=== PATIENT | female | born 1960 | race Caucasian/White ===

== ENCOUNTER 2023-10-06 13:25 | Outpatient (RCR) | payer BC, SELFPAY | END 2023-10-15 08:51 | disposition home or self-care (01) | LOC: ROT 13:25 | PROVIDERS: ATTENDING PHYSICIAN Internal Medicine Rheumatology; PRIMARYCARE PHYSICIAN Family Medicine | DX: M18.0 Bilateral primary osteoarthritis of first carpometacarpal joints (principal) | CPT/HCPCS: 73502; 97110; 97535; 97760 ==

== ENCOUNTER → 2023-12-16 13:01 | Outpatient (REF) | payer BC, SELFPAY ==
[2023-12-16 14:30] LABS: ALT (SGPT) 64 U/L (0-35); AST (SGOT) 52 U/L (14-36); Albumin 4.4 g/dl (3.5-5.0); Alkaline Phosphatase 53 U/L (38-126); Blood Urea Nitrogen 18 mg/dl (7-17); Calcium 9.5 mg/dl (8.4-10.2); Carbon Dioxide 31 mmol/L (22-30); Chloride 97 mmol/L (98-107); Glucose 115 mg/dl (70-99); Potassium 4.3 mmol/L (3.5-5.1); Sodium 131 mmol/L (135-145); Total Bilirubin 0.5 mg/dl (0.2-1.3); Total Protein 7.2 g/dl (6.3-8.2); eGFR > 60.00
== END ==
LOC: REG 13:01
PROVIDERS: ATTENDING PHYSICIAN Family Medicine
DX: E87.1 Hypo-osmolality and hyponatremia (principal); R74.8 Abnormal levels of other serum enzymes
CPT/HCPCS: 36415; 80053

== ENCOUNTER → 2023-12-31 16:21 | Outpatient (REF) | payer BC, SELFPAY | LOC: RAD 16:21 | PROVIDERS: ATTENDING PHYSICIAN Physician Assistant | DX: R07.9 Chest pain, unspecified (principal) | CPT/HCPCS: 71046 ==

== ENCOUNTER → 2024-01-05 09:50 | Outpatient (REF) | payer BC, SELFPAY ==
[2024-01-05 12:29] LABS: ALT (SGPT) 52 U/L (0-35); AST (SGOT) 40 U/L (14-36); Albumin 4.6 g/dl (3.5-5.0); Alkaline Phosphatase 52 U/L (38-126); Iron 195 ug/dl (37-170); Total Bilirubin 0.6 mg/dl (0.2-1.3); Total Protein 7.2 g/dl (6.3-8.2)
[2024-01-05 12:40] LABS: Percent Saturation 54 % (20-50); Total Iron Binding Capacity 355 ug/dl (265-497)
[2024-01-05 13:19] LABS: Ferritin 20.6 ng/ml (11.1-264.0)
[2024-01-05 14:09] LABS: tTG IgA Antibody 4.9 EU/ml (0-19); tTG IgG Antibody 12.9 EU/ml (0-19)
[2024-01-06 05:54] LABS: IgA 300 mg/dl (70-400)
[2024-01-06 19:05] LABS: Hepatitis B Surface Antigen Negative (Negative)
[2024-01-06 19:23] LABS: Hepatitis B Core Ab, Total Negative (Negative); Hepatitis B Surface Antibody Negative; Hepatitis C Antibody Negative (Negative)
[2024-01-06 20:39] LABS: Hepatitis A Antibody, Total Negative (Negative)
[2024-01-07 07:51] LABS: ANA, IgG Reflex to HEp-2 Detected (None Detected)
[2024-01-07 08:20] LABS: F-Actin Antibody IgG 4 Units (0-19); Mitochondrial M2 Ab, IgG 2.6 Units (0.0-24.9)
[2024-01-07 09:45] LABS: Alpha-1-Antitrypsin 131 mg/dL (90-200); Ceruloplasmin 31 mg/dL (16-45)
[2024-01-07 21:34] LABS: Endomysial IgA Antibody Titer <1:10 (<1:10)
[2024-01-07 22:06] LABS: LKM-1 Ab (IgG) 1.7 U (0.0-24.9)
[2024-01-10 07:21] LABS: ANA, HEp-2, IgG <1:80 (<1:80)
== END ==
LOC: REG 09:50
PROVIDERS: ATTENDING PHYSICIAN Physician Assistant; FAMILY PHYSICIAN Family Medicine
DX: R79.89 Other specified abnormal findings of blood chemistry (principal)
CPT/HCPCS: 36415; 80076; 82103; 82390; 82728; 82784; 83516; 83540; 83550; 86015; 86038; 86039; 86231; 86376; 86381; 86704; 86706; 86708; 86803; 87340

== ENCOUNTER → 2024-01-28 08:16 | Outpatient (REF) | payer BC, SELFPAY | LOC: RAD 08:16 | PROVIDERS: ATTENDING PHYSICIAN Physician Assistant; FAMILY PHYSICIAN Family Medicine | DX: R79.89 Other specified abnormal findings of blood chemistry (principal); K59.00 Constipation, unspecified | CPT/HCPCS: 74019; 76700 ==

== ENCOUNTER → 2024-01-31 14:51 | Outpatient (REF) | payer BC, SELFPAY | LOC: WDC 14:51 | PROVIDERS: ATTENDING PHYSICIAN Obstetrics & Gynecology; FAMILY PHYSICIAN Family Medicine | DX: R92.2 Inconclusive mammogram (principal) | CPT/HCPCS: 76641 ==

== ENCOUNTER → 2024-02-11 14:17 | Outpatient (REF) | payer BC, SELFPAY ==
[2024-02-13 19:16] LABS: ANA, IgG Reflex to HEp-2 Detected (None Detected)
[2024-02-14 12:57] LABS: ANA, HEp-2, IgG <1:80 (<1:80)
[2024-02-18 17:43] LABS: Hemochromatosis Specimen Whole Blood
== END ==
LOC: REG 14:17
PROVIDERS: ATTENDING PHYSICIAN Physician Assistant; FAMILY PHYSICIAN Family Medicine
DX: R79.89 Other specified abnormal findings of blood chemistry (principal)
CPT/HCPCS: 36415; 81256; 86038; 86039

== ENCOUNTER → 2024-02-17 11:21 | Outpatient (REF) | payer BC, SELFPAY | LOC: RAD 11:21 | PROVIDERS: ATTENDING PHYSICIAN Internal Medicine Rheumatology; FAMILY PHYSICIAN Family Medicine | DX: M81.0 Age-related osteoporosis without current pathological fracture (principal); M75.100 Unspecified rotator cuff tear or rupture of unspecified shoulder, not specified as traumatic | CPT/HCPCS: 73030; 77080 ==

== ENCOUNTER → 2024-03-01 09:20 | Outpatient (REF) | payer BC, SELFPAY ==
[2024-03-01 10:47] LABS: % Basophils 0.9 % (0-2); % Eosinophils 5.1 % (0-6); % Lymphocytes 49.8 % (20.5-51.1); % Monocytes 10.4 % (1.7-9.3); % Neutrophils 33.8 % (42.2-75.2); Absolute Basophils 0.1 10^3/uL (0-0.2); Absolute Eosinophils 0.3 10^3/uL (0-0.7); Absolute Lymphocytes 2.8 10^3/uL (1.2-3.4); Absolute Monocytes 0.6 10^3/uL (0.1-0.6); Absolute Neutrophils 1.9 10^3/uL (1.4-6.5); Hematocrit 38.3 % (37.0-47.0); Mean Corp Hgb Conc. 33.9 g/dL (33.0-37.0); Mean Corpuscular Hgb 32.1 pg (27.0-31.0); Mean Corpuscular Volume 94.6 fL (81.0-99.0); Mean Platelet Volume 9.4 fL (7.4-10.4); Nucleated Red Blood Cells % 0 %; Platelet Count 249 10^3/uL (130-400); Red Blood Cell Count 4.05 10^6/uL (4.20-5.40); Red Cell Dist. Width 11.9 % (11.5-14.5); White Blood Cell Count 5.7 10^3/uL (4.8-10.8)
[2024-03-01 11:08] LABS: Erythrocyte Sed Rate 10 mm/hour (0-20)
[2024-03-01 11:22] LABS: ALT (SGPT) 44 U/L (0-35); AST (SGOT) 43 U/L (14-36); Albumin 4.1 g/dl (3.5-5.0); Alkaline Phosphatase 51 U/L (38-126); Blood Urea Nitrogen 16 mg/dl (7-17); Calcium 9.3 mg/dl (8.4-10.2); Carbon Dioxide 27 mmol/L (22-30); Chloride 99 mmol/L (98-107); Creatine Phosphokinase 148 U/L (30-135); Glucose 92 mg/dl (70-99); Potassium 4.3 mmol/L (3.5-5.1); Sodium 132 mmol/L (135-145); Total Bilirubin 0.4 mg/dl (0.2-1.3); Total Cholesterol 205 mg/dl (50-199); Total Protein 6.7 g/dl (6.3-8.2); Triglyceride 52 mg/dl (10-149); Very Low Density Lipoprotein 10 mg/dl (0-30); eGFR > 60.00
[2024-03-01 11:28] LABS: C-Reactive Protein < 5.00 mg/L (0.0-10.00)
[2024-03-01 11:33] LABS: HDL Cholesterol 116 mg/dl; LDL Cholesterol, Calculated 79 mg/dl
[2024-03-01 11:53] LABS: TSH 2.19 uIU/ml (0.47-4.68)
[2024-03-01 15:27] LABS: tTG IgA Antibody 3.4 EU/ml (0-19)
[2024-03-02 05:53] LABS: IgA 278 mg/dl (70-400)
[2024-03-03 19:16] LABS: Endomysial IgA Antibody Titer <1:10 (<1:10)
== END ==
LOC: REG 09:20
PROVIDERS: ATTENDING PHYSICIAN Internal Medicine Rheumatology; FAMILY PHYSICIAN Family Medicine
DX: E05.90 Thyrotoxicosis, unspecified without thyrotoxic crisis or storm (principal); E87.1 Hypo-osmolality and hyponatremia; M32.9 Systemic lupus erythematosus, unspecified; Z51.81 Encounter for therapeutic drug level monitoring; E78.2 Mixed hyperlipidemia; R74.8 Abnormal levels of other serum enzymes; D72.819 Decreased white blood cell count, unspecified; M25.50 Pain in unspecified joint
CPT/HCPCS: 36415; 80053; 80061; 82533; 82550; 82784; 83516; 84443; 85025; 85652; 86038; 86140; 86231

== ENCOUNTER → 2024-08-19 10:07 | Outpatient (REF) | payer BC, SELFPAY ==
[2024-08-19 11:13] LABS: ALT (SGPT) 29 U/L (0-35); AST (SGOT) 37 U/L (14-36); Albumin 4.5 g/dl (3.5-5.0); Alkaline Phosphatase 47 U/L (38-126); Blood Urea Nitrogen 16 mg/dl (7-17); Calcium 9.7 mg/dl (8.4-10.2); Carbon Dioxide 30 mmol/L (22-30); Chloride 99 mmol/L (98-107); Glucose 104 mg/dl (70-99); Potassium 4.5 mmol/L (3.5-5.1); Sodium 138 mmol/L (135-145); Total Bilirubin 0.4 mg/dl (0.2-1.3); eGFR > 60.00
== END ==
LOC: REG 10:07
PROVIDERS: ATTENDING PHYSICIAN Family Medicine; OTHER PHYSICIAN Internal Medicine Rheumatology; REFERRING PHYSICIAN Internal Medicine Gastroenterology
DX: R74.8 Abnormal levels of other serum enzymes (principal)
CPT/HCPCS: 36415; 80053

== ENCOUNTER → 2024-08-31 14:00 | Outpatient (REF) | payer BC, SELFPAY | LOC: WDC 14:00 | PROVIDERS: ATTENDING PHYSICIAN Obstetrics & Gynecology; FAMILY PHYSICIAN Family Medicine | DX: Z12.31 Encounter for screening mammogram for malignant neoplasm of breast (principal) | CPT/HCPCS: 77063; 77067 ==

== ENCOUNTER → 2024-12-22 10:09 | Outpatient (REF) | payer BC, SELFPAY ==
[2024-12-22 10:52] LABS: Hematocrit 40.4 % (37.0-47.0); Hemoglobin 13.2 g/dL (12.0-16.0); Mean Corp Hgb Conc. 32.7 g/dL (33.0-37.0); Mean Corpuscular Hgb 31.6 pg (27.0-31.0); Mean Corpuscular Volume 96.7 fL (81.0-99.0); Platelet Count 210 10^3/uL (130-400); Red Blood Cell Count 4.18 10^6/uL (4.20-5.40); Red Cell Dist. Width 12.1 % (11.5-14.5); White Blood Cell Count 5.5 10^3/uL (4.8-10.8)
[2024-12-22 11:16] LABS: % Basophils 0.5 % (0-2); % Eosinophils 4.9 % (0-6); % Immature Granulocytes 0.2 % (0-0.5); % Lymphocytes 52.3 % (20.5-51.1); % Monocytes 10.7 % (1.7-9.3); % Neutrophils 31.4 % (42.2-75.2); Absolute Eosinophils 0.3 10^3/uL (0-0.7); Absolute Lymphocytes 2.9 10^3/uL (1.2-3.4); Absolute Monocytes 0.6 10^3/uL (0.1-0.6); Absolute Neutrophils 1.7 10^3/uL (1.4-6.5); Nucleated Red Blood Cells % 0 %
[2024-12-22 12:08] LABS: ALT (SGPT) 37 U/L (0-35); AST (SGOT) 41 U/L (14-36); Albumin 4.8 g/dl (3.5-5.0); Alkaline Phosphatase 63 U/L (38-126); Blood Urea Nitrogen 22 mg/dl (7-17); Calcium 9.9 mg/dl (8.4-10.2); Carbon Dioxide 28 mmol/L (22-30); Chloride 99 mmol/L (98-107); Glucose 100 mg/dl (70-99); Potassium 4.4 mmol/L (3.5-5.1); Sodium 134 mmol/L (135-145); Total Bilirubin 0.9 mg/dl (0.2-1.3); Total Protein 7.2 g/dl (6.3-8.2); eGFR > 60.00
== END ==
LOC: REG 10:09
PROVIDERS: ATTENDING PHYSICIAN Internal Medicine Rheumatology; FAMILY PHYSICIAN Family Medicine
DX: M81.0 Age-related osteoporosis without current pathological fracture (principal); Z51.81 Encounter for therapeutic drug level monitoring
CPT/HCPCS: 36415; 80053; 85025

== ENCOUNTER → 2025-01-22 14:00 | Outpatient (REF) | payer BC, SELFPAY | LOC: RAD 14:00 | PROVIDERS: ATTENDING PHYSICIAN Nurse Practitioner | DX: J06.9 Acute upper respiratory infection, unspecified (principal) | CPT/HCPCS: 71046 ==

== ENCOUNTER 2025-02-04 09:01 | Emergency (ER) | payer BC, SELFPAY ==
--- NOTE | 2025-02-04 10:57 | ED.GENMED ---
History of Present Illness
General
Chief Complaint: Breathing Problem
Source: patient and family
Exam Limitations: none
Time Seen by Provider: 02/04/25 09:58
Nursing documentation reviewed up to this point in time: agreed with
History of Present Illness
History of Present Illness:
64-year-old female with distant history of asthma COVID few months ago, slowly recovering using nebs, course of p.o. steroids course of Doxy inhaled steroids cough is worse at night, no fever for a week or 2, developed redness and swelling of the
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
Past History
Past History
ED Past Medical History: Other (Collagenous colitis) and Other (Migraines)
ED Past Surgical History: Gynecological and Other (Abdominal plasty)
Social History
Tobacco: Non-smoker
Alcohol: None
Drug: None
Personal:
Living: with family
Phy Exam
Physical Exam
Physical Exam:
Physical Exam
General: 64 female, coughing
Neck: supple.
Heart: s1/s2 regular rate and rhythm, no murmur. equal radial pulses.
Lungs: Fair air movement faint wheeze
Abdomen: Not tender
Neuro: alert and oriented. no focal neurological deficits
Skin: no rash
Psychiatric: well kept. interactive and cooperative
Extremities: Erythema mild swelling of the left olecranon bursa minimal warmth no fluctuance
Scores
Heart Failure Risk
Heart Failure Risk Score: Not Applicable
Course
Orders/Labs/Results
Orders:
Orders
02/04/25 10:49
Electrocardiogram (*1) Stat
Reason for Study: Other
Other Reason for Exam: chest pain
CT Chest PE Study Urgent
Comment:
Reason For Exam: sob
Cardiac Monitoring- Treatment ONCE
EKG- Treatment ONCE
02/04/25 10:50
Ipratropium/Albuterol Sulfate [Duoneb] 3 ml INH R NOW STA
Elbow, 3 view, Left [CR Elbow - Left Min 3 Views ] Urgent
Comment:
Reason For Exam: swelling
02/04/25 10:51
Acetaminophen 1000MG/100Ml [Ofirmev] 1,000 mg in 100 ml IV ONCE
Acetaminophen IV Indication:: ED Narcotic Naive Pt-ONCE
02/04/25 11:00
Complete Blood Count/With Diff Urgent
Comprehensive Metabolic Panel Urgent
ESR [Erythrocyte Sed Rate] Urgent
Magnesium Urgent
NT-proBNP Urgent
TSH Urgent
Troponin I Urgent
02/04/25 11:33
COVID-19 Antigen Urgent
Source: Nasal Swab
Influenza A+B Rapid Molecular Urgent
KAREN Source: Nasal Swab
Specimen Description:
Respiratory Syncytial Virus Urgent
KAREN Source: Nasal Swab
Specimen Description:
Date Specimen was Collected: 02/04/25
Time Specimen was Collected: 11:18
02/04/25 13:46
Doxycycline Hyclate [Vibramycin] 100 mg 0.9% Sodium Chloride 250 ml [Nss] 250 ml IV NOW
Ipratropium/Albuterol Sulfate [Duoneb] 6 ml INH R NOW STA
02/04/25 14:07
Doxycycline [Vibramycin] 100 mg PO NOW STA
Abnormal Lab Results
02/04/25
11:00
WBC 13.7 H 10^3/uL
(4.8-10.8)
MCH 32.6 H pg
(27.0-31.0)
Absolute Neuts (auto) 9.4 H 10^3/uL
(1.4-6.5)
Absolute Monos (auto) 1.1 H 10^3/uL
(0.1-0.6)
Sodium 134 L mmol/L
(135-145)
BUN 23 H mg/dl
(7-17)
Glucose 115 H mg/dl
(70-99)
02/04/25 11:00
02/04/25 11:00
Vital Signs
Initial and Last Documented VS:
Initial Vital Signs
Temp Pulse Resp Pulse Ox
98.3 F 90 16 100
02/04/25 09:05 02/04/25 09:05 02/04/25 09:05 02/04/25 09:05
Last Documented Vital Signs
Temp Pulse Resp BP Pulse Ox
98.3 F 70 16 128/69 98
02/04/25 09:05 02/04/25 14:00 02/04/25 14:00 02/04/25 14:00 02/04/25 14:00
MDM/Problems Addressed
Differential Diagnosis Includes:
Bronchitis asthma PE pneumonia viral syndrome inflammatory process olecranon bursitis cellulitis doubt septic arthritis
MDM/Problems Addressed:
Swollen elbow, shortness of breath
Chronic conditions affecting care: Asthma
Acute Exacerbation and/or Progression of Chronic Illness: Asthma
*Critical Care Note
Total Time (30-74mins, 75-104mins- exclusive of procedures): Not Applicable
Update Note
Update Note:
1:[address] report noted
1:30 PM reviewed labs imaging with patient we will treat her elbow for cellulitis, hold on further steroids as could make her little bit immunosuppressed, will send her home with nebulizer with DuoNebs continue her inhaled steroids, follow-up with
pulmonary, Ortho as needed
ED Attending Note
-
Portions of this chart may have been created with voice recognition software.� Occasional wrong word or��sound alike� substitutions may have occurred due to the inherent limitations of voice recognition software.
Discharge Plan
Departure
Patient Disposition: Home (Routine Discharge)
Date of Disposition: 02/04/25
Time of Disposition: 13:47
Patient with high blood pressure during this ER visit?: No
Discharge Problem:
Acute bronchitis, Cellulitis
Instructions: Acute Bronchitis, Adult (DC), Cellulitis (skin infection) in adults - ED discharge instructions
Prescriptions:
New
doxycycline monohydrate 100 mg tablet
100 mg PO BID Qty: 20 0RF
ipratropium-albuterol 0.5 mg-3 mg(2.5 mg base)/3 mL solution for nebulization
3 ml inhalation Q4H PRN (Reason: shortness of breath) Qty: 180 2RF
No Action
rizatriptan [Maxalt] 10 MG tablet
10 mg PO PRN PRN (Reason: migraine)
amitriptyline 25 MG tablet
50 mg PO HS
paroxetine HCl 20 MG tablet
40 mg PO DAILY
kvbwqpgc-dpoyodx-aqlo-lutein [Centrum Silver Ultra Women's] 1 EACH tablet
1 ea PO DAILY
melatonin 3 MG tablet
3 mg PO HS PRN (Reason: insomnia)
aspirin [Aspir-Low] 81 MG tablet,delayed release (DR/EC)
81 mg PO DAILY
alprazolam 0.25 MG tablet
0.25 mg PO PRN PRN (Reason: anxiety)
amitriptyline 10 MG tablet
10 mg PO QPM
docusate sodium [Colace] 100 MG capsule
100 mg PO PRN PRN (Reason: constipation)
budesonide 3 MG capsule,delayed,extend.release
6 mg PO DAILY
tretinoin microspheres [Retin-A Micro] 20 GM gel
20 gm TP .EVERY OTHER DAY
fish oil-dha-epa 1 EACH capsule
1 ea PO DAILY
calcium carbonate-vitamin D3 [Calcium 500 + D] 1 EACH tablet
1 ea PO DAILY
psyllium husk [Metamucil] 660 GM powder
660 gm PO DAILY
clindamycin phosphate [Clindagel] 40 ML gel, once daily
40 ml TP DAILY
Referrals:
Reddy,Pinak S., MD [Active] - Next open appointment
Lico Schreiber MD [Family Provider] -
David Victor MD [Active] - As needed
Activity Restrictions/Additional Instructions:
Continue steroid inhaler
Use DuoNebs every 3-4 hours via nebulizer
Doxycycline 2 times a day
Follow-up with your lung doctor call tomorrow for an appointment return to the ER if your breathing worsens and/or you have increased redness or swelling of your elbow
Interventions
Interventions:
*Risk Screen - Suicide Last Done: 02/04/25 11:00
*General Assessment Last Done: 02/04/25 11:00
*Neglect/Abuse Screening Last Done: 02/04/25 11:00
*ED COVID-19 Vaccine History Last Done: 02/04/25 11:00
*Nursing Disposition Last Done: 02/04/25 14:47
ED- Cardiac Assessment Last Done: 02/04/25 11:00
ED- Pulmonary Assessment Last Done: 02/04/25 11:00
Discharge Date and Time
Discharge Date/Time: 02/04/25 14:48
Print Language: IRAQI
[2025-02-04 11:00] VITALS: BP 124/67
[2025-02-04] MEDS: OFIRMEV 100 IV (11:01)
[2025-02-04] MEDS: DUONEB 3 ML INH (11:02)
[2025-02-04 11:10] LABS: % Basophils 0.4 % (0-2); % Eosinophils 2.7 % (0-6); % Immature Granulocytes 0.3 % (0-0.5); % Lymphocytes 20.7 % (20.5-51.1); % Monocytes 7.7 % (1.7-9.3); % Neutrophils 68.2 % (42.2-75.2); Absolute Basophils 0.1 10^3/uL (0-0.2); Absolute Eosinophils 0.4 10^3/uL (0-0.7); Absolute Lymphocytes 2.8 10^3/uL (1.2-3.4); Absolute Monocytes 1.1 10^3/uL (0.1-0.6); Absolute Neutrophils 9.4 10^3/uL (1.4-6.5); Hematocrit 40.6 % (37.0-47.0); Hemoglobin 13.8 g/dL (12.0-16.0); Mean Corpuscular Hgb 32.6 pg (27.0-31.0); Mean Platelet Volume 8.6 fL (7.4-10.4); Nucleated Red Blood Cells % 0 %; Platelet Count 306 10^3/uL (130-400); Red Blood Cell Count 4.23 10^6/uL (4.20-5.40); Red Cell Dist. Width 12.2 % (11.5-14.5); White Blood Cell Count 13.7 10^3/uL (4.8-10.8)
[2025-02-04 11:23] LABS: ALT (SGPT) 32 U/L (0-35); AST (SGOT) 32 U/L (14-36); Albumin 4.7 g/dl (3.5-5.0); Alkaline Phosphatase 60 U/L (38-126); Blood Urea Nitrogen 23 mg/dl (7-17); Calcium 10.1 mg/dl (8.4-10.2); Carbon Dioxide 27 mmol/L (22-30); Chloride 99 mmol/L (98-107); Glucose 115 mg/dl (70-99); Magnesium 2.2 mg/dl (1.6-2.3); Potassium 4.2 mmol/L (3.5-5.1); Sodium 134 mmol/L (135-145); Total Bilirubin 0.6 mg/dl (0.2-1.3); Total Protein 7.2 g/dl (6.3-8.2); eGFR > 60.00
[2025-02-04 11:28] LABS: Erythrocyte Sed Rate 5 mm/hour (0-20)
[2025-02-04 11:35] LABS: NT-proBNP 41.8 pg/ml; Troponin I < 0.012 ng/ml
[2025-02-04 11:55] LABS: TSH 1.08 uIU/ml (0.47-4.68)
[2025-02-04 11:55] LABS: COVID-19 Antigen Negative (Negative)
[2025-02-04 12:00] VITALS: BP 119/78
[2025-02-04 13:27] VITALS: BP 110/68
[2025-02-04 14:00] VITALS: BP 128/69
[2025-02-04] MEDS: VIBRAMYCIN 100 MG PO (14:18)
[2025-02-04] MEDS: DUONEB 6 ML INH (14:19)
== END 2025-02-04 14:48 | disposition home or self-care (01) ==
LOC: EMR 09:01
PROVIDERS: EMERGENCY PHYSICIAN Emergency Medicine; FAMILY PHYSICIAN Family Medicine
DX: J20.9 Acute bronchitis, unspecified (principal); L03.114 Cellulitis of left upper limb; J45.909 Unspecified asthma, uncomplicated; Z11.52 Encounter for screening for COVID-19
CPT/HCPCS: 96374; 94640; 99285; 71275; 73080; 80053; 83735; 83880; 84443; 84484; 85025; 85652; 87502; 87807; 87811; 93005; Q9967

== ENCOUNTER → 2025-02-07 14:47 | Outpatient (REF) | payer BC, SELFPAY | LOC: WDC 14:47 | PROVIDERS: ATTENDING PHYSICIAN Obstetrics & Gynecology; FAMILY PHYSICIAN Family Medicine | DX: R92.2 Inconclusive mammogram (principal) | CPT/HCPCS: 76641 ==

== ENCOUNTER → 2025-04-02 10:23 | Outpatient (REF) | payer BC, SELFPAY ==
[2025-04-02 15:59] LABS: ALT (SGPT) 41 U/L (0-35); AST (SGOT) 36 U/L (14-36); Albumin 4.6 g/dl (3.5-5.0); Alkaline Phosphatase 55 U/L (38-126); Blood Urea Nitrogen 17 mg/dl (7-17); Calcium 9.9 mg/dl (8.4-10.2); Carbon Dioxide 29 mmol/L (22-30); Chloride 104 mmol/L (98-107); Glucose 103 mg/dl (70-99); Potassium 4.8 mmol/L (3.5-5.1); Sodium 136 mmol/L (135-145); Total Bilirubin 0.5 mg/dl (0.2-1.3); Total Cholesterol 233 mg/dl (50-199); Total Protein 7.2 g/dl (6.3-8.2); Triglyceride 59 mg/dl (10-149); Very Low Density Lipoprotein 11 mg/dl (0-30); eGFR > 60.00
[2025-04-02 16:09] LABS: HDL Cholesterol 128 mg/dl; LDL Cholesterol, Calculated 94 mg/dl
== END ==
LOC: REG 10:23
PROVIDERS: ATTENDING PHYSICIAN Family Medicine
DX: E78.2 Mixed hyperlipidemia (principal); R74.8 Abnormal levels of other serum enzymes
CPT/HCPCS: 36415; 80053; 80061

== ENCOUNTER 2025-06-23 11:32 | Emergency (ER) | payer BC, SELFPAY ==
[2025-06-23 11:40] VITALS: BP 128/70
[2025-06-23] MEDS: NORCO 5/325 2 TABLET PO (13:54)
[2025-06-23 14:00] VITALS: BP 128/63
--- NOTE | 2025-06-23 14:31 | ED.GENMED ---
History of Present Illness
General
Chief Complaint: Musculo-Skeletal Complaint
Source: patient and spouse (Spouse states that she tripped over the ledge near the door)
Time Seen by Provider: 06/23/25 12:49
History of Present Illness
History of Present Illness:
Note:
CHIEF COMPLAINT(S)
Fall resulting in wrist pain and suspected fracture.
HISTORY OF PRESENT ILLNESS
The patient is a 65yo female who experienced a fall off a step. She landed on her outstretched hand, a mechanism known as 'fall on an outstretched hand' or FOOSH. The accident occurred on concrete, which increased the potential risk for injury. Upon
falling, the patient immediately suspected a wrist fracture due to the location and nature of the pain and deformity. The patients concern that the wrist injury might be severe was confirmed upon evaluation; the distal radius is fractured with mild
deformity. Although the fracture is displaced, surgical intervention is not immediately necessary but will be required. Initially, the wrist was immobilized with a splint and sling to stabilize the fracture and provide some pain relief. The patient
denies any pain in the head, neck, or back, and denies loss of consciousness or hitting her head during the fall. She reported no significant pain in the shoulder or elbow as well. She expressed worries about potential osteoporosis.
PAST MEDICAL AND SURIGICAL HISTORY
- Gastrointestinal issues including colitis
- Migraines
- Arthritis
- Irritable Bowel Syndrome
CHRONIC MEDICAL CONDITIONS SIGNIFICANTLY AFFECTING CARE
- Gastrointestinal issues (including Colitis)
- Arthritis
- Irritable Bowel Syndrome
SOCIAL DETERMINANTS AFFECTING HEALTH
Patient mentioned taking care of her 90-year-old mother who recently had a pacemaker placed and lives across the street. The patient was attending to her mother and greeting a visiting nurse at the time of the fall. The patients caregiving
responsibilities may contribute to stress and occupational hazards, such as the incident leading to her fall.
PHYSICAL EXAM
General: Alert, no acute distress.
Skin: Warm, dry.
Head: Normocephalic, atraumatic.
Neck: Supple, trachea midline.
Eyes, Ears, Nose, and Throat: Oral mucosa moist.
Cardiovascular: Normal peripheral perfusion, no edema.
Respiratory: Respirations are non-labored.
Gastrointestinal: Abdomen nondistended.
Back: Normal range of motion, normal alignment.
Musculoskeletal: Tenderness over the distal radius with mild deformity, normal distal capillary refill; non-tender shoulder, clavicle, and elbow; preserved nerve function in the affected area.
Neurological: Alert and oriented to person, place, time, and situation, no focal neurological deficit observed.
Psychiatric: Cooperative, appropriate mood & affect.
PLAN
- Immobilize the wrist with a splint and sling to stabilize the fracture.
- Follow up with orthopedic surgery to plan for surgical intervention of the distal radius fracture.
- Encourage continued monitoring for any new symptoms or changes, particularly the development of pain elsewhere.
DIFFERENTIAL DIAGNOSIS
The Differential Diagnosis includes, in no particular order and is not limited to:
- Distal radius fracture
- Colles fracture
- Fracture-dislocation of the wrist
- Scaphoid fracture
- Soft tissue injury or sprain
- Osteoporosis-related fragility fracture
- Musculoskeletal strain
- Elbow fracture
- Proximal row carpectomy
- Wrist instability
Disposition:
SUMMARY OF ENCOUNTER
The patient, a 65-year-old female, presented to the emergency department following a mechanical fall onto an outstretched hand, resulting in a comminuted distal radius fracture with volar angulation. The wrist was splinted for immobilization. After
evaluation, the fracture was determined to not immediately require surgical intervention, but surgical planning is necessary. The cardiovascular examination was normal.
PLAN
The wrist was immobilized with a splint to allow stabilization of the fracture. The patient will be referred to outpatient orthopedic surgery for further evaluation and surgical planning for the distal radius fracture. Monitoring for any new
symptoms or changes will be encouraged.
PATIENT EDUCATION AND COUNSELING
The patient was educated about the nature of the wrist fracture, the necessity for stabilization with a splint, and the potential need for surgical intervention. She was advised to monitor for any increase in pain or additional symptoms and seek
care if these develop.
FOLLOW-UP INSTRUCTIONS
The patient should follow up with orthopedic surgery for further management of her wrist fracture. Instructions were given to arrange a follow-up visit promptly for surgical evaluation and planning.
MEDICATION RECONCILIATION
No medications were administered or prescribed during this encounter.
MEDICAL DECISION MAKING
-Chronic conditions affecting care: Gastrointestinal issues including colitis, migraines, arthritis, irritable bowel syndrome.
-DDx: Distal radius fracture, Colles fracture, fracture-dislocation of the wrist, scaphoid fracture, soft tissue injury or sprain, osteoporosis-related fragility fracture, musculoskeletal strain, elbow fracture, proximal row carpectomy, wrist
instability.
-Data:
Category 1
My independent interpretation of the wrist imaging reveals a comminuted distal radius fracture with volar angulation.
-Risk:
Consideration of Admission/Observation: Escalation of care including admission/observation was considered given the complexity and risk of the patients presenting complaint and exam findings. However, ultimately I feel the patient is safe for
outpatient management with close follow-up. Reasoning: Work-up is reassuring, does not reveal any acute life/organ-threatening processes, the patients symptoms are well controlled upon reevaluation, reexamination is reassuring, vitals are stable,
and the patient is agreeable with discharge and reliable for follow-up.
DIAGNOSIS
Distal radius fracture, unspecified, closed (ICD-10: S52.501A).
Past History
Past History
ED Past Medical History: Other (Collagenous colitis) and Other (Migraines)
ED Past Surgical History: Gynecological and Other (Abdominal plasty)
Social History
Tobacco: Non-smoker
Alcohol: None
Drug: None
Personal:
Living: with family
Phy Exam
Physical Exam
Physical Exam:
.
Course
Orders/Labs/Results
Orders:
Orders
06/23/25 11:34
Wrist, Left 3 Views CR [CR Wrist - Left Min 3 Views] Urgent
Comment:
Reason For Exam: pain, trauma
06/23/25 13:27
Hydrocodone 5/APAP 325 [[place] 5/325] 2 tablet PO NOW STA
Vital Signs
Initial and Last Documented VS:
Initial Vital Signs
Temp Pulse Resp BP Pulse Ox
98 F 80 16 128/70 100
06/23/25 11:40 06/23/25 11:40 06/23/25 11:40 06/23/25 11:40 06/23/25 11:40
Last Documented Vital Signs
Temp Pulse Resp BP Pulse Ox
98 F 68 20 128/63 99
06/23/25 11:40 06/23/25 14:00 06/23/25 14:00 06/23/25 14:00 06/23/25 14:00
Procedures
Splinting/Sling Placement
Left Wrist:
Procedure completed by: Dr Hart
Pre-splint extermity exam: neurovascular intact
Type of splint: sugar-tong
Splint material: fiberglass
Type of sling: sling fitted
Normal distal neurovascular exam?: Yes
Additional information:
volar molding performed
*Pulse Oximetry
SaO2: 99
Oxygen Mode of Delivery: Room air
Patient hypoxic: no
*Critical Care Note
Total Time (30-74mins, 75-104mins- exclusive of procedures): Not Applicable
ED Attending Note
-
Portions of this chart may have been created with voice recognition software.� Occasional wrong word or��sound alike� substitutions may have occurred due to the inherent limitations of voice recognition software.
Discharge Plan
Departure
Patient Disposition: Home (Routine Discharge)
Date of Disposition: 06/23/25
Time of Disposition: 14:31
Patient with high blood pressure during this ER visit?: No
Discharge Problem:
Distal radial fracture, Fracture of ulnar styloid
Instructions: Wrist Fracture (DC), How to Use a Shoulder Sling
Prescriptions:
New
hydrocodone-acetaminophen 5-325 mg tablet
2 tab PO Q6H PRN (Reason: Pain) Qty: 10 0RF
No Action
rizatriptan [Maxalt] 10 MG tablet
10 mg PO PRN PRN (Reason: migraine)
alprazolam 0.25 MG tablet
0.25 mg PO PRN PRN (Reason: anxiety)
Patient Comments:
last filled 06/19/25, #90 @ [facility]
docusate sodium [Colace] 100 MG capsule
100 mg PO HS
tretinoin microspheres [Retin-A Micro] 20 GM gel
20 gm TP Q48H
calcium carbonate-vitamin D3 [Calcium 500 + D] 1 EACH tablet
1 ea PO DAILY
clindamycin phosphate [Clindagel] 40 ML gel, once daily
40 ml TP BID
amitriptyline 10 mg tablet
30 mg PO HS
paroxetine HCl 10 mg Tablet
50 mg PO HS
atenolol 25 mg tablet
25 mg PO DAILY
Theragen Tablet
1 tab PO DAILY
acetaminophen 650 mg Tablet Extended Release
650 mg PO DAILYPRN PRN (Reason: mild pain)
aspirin 81 mg Tablet
81 mg PO DAILY
Visbiome 112.5 billion cell Capsule
1 cap PO DAILY
magnesium glycinate 100 mg Tablet
200 mg PO HS
omega 5-cdc-mfs-fish oil [Fish Oil] 1,000 (120-180) mg Capsule
1 cap PO DAILY
Linzess 145 mcg capsule
145 mcg PO DAILY
Referrals:
Gerson Rees MD [Active, Orthopedics]
Lico Schreiber MD [Family Provider, Family Practice]
Activity Restrictions/Additional Instructions:
Please see orthopedics in the next 3 to 5 days for follow-up and reevaluation. Return immediately for numbness, tingling, worsening pain or any other concerns. Please elevate, rest and ice your injured wrist.
Interventions
Interventions:
*Risk Screen - Suicide Last Done: 06/23/25 11:41
*General Assessment Last Done: 06/23/25 14:01
*Neglect/Abuse Screening Last Done: 06/23/25 11:41
*ED COVID-19 Vaccine History Last Done: 06/23/25 14:01
Discharge Date and Time
Print Language: [place]
== END 2025-06-23 15:00 | disposition home or self-care (01) ==
LOC: EMR 11:32
PROVIDERS: EMERGENCY PHYSICIAN Emergency Medicine; FAMILY PHYSICIAN Family Medicine
DX: S52.572A Other intraarticular fracture of lower end of left radius, initial encounter for closed fracture (principal); S52.615A Nondisplaced fracture of left ulna styloid process, initial encounter for closed fracture; K58.9 Irritable bowel syndrome, unspecified; M19.90 Unspecified osteoarthritis, unspecified site; W10.9XXA Fall (on) (from) unspecified stairs and steps, initial encounter; Y92.009 Unspecified place in unspecified non-institutional (private) residence as the place of occurrence of the external cause
CPT/HCPCS: 99283; 73110

== ENCOUNTER → 2025-06-25 16:28 | Outpatient (REF) | payer BC, SELFPAY ==
[2025-06-25 17:14] LABS: Hematocrit 34.8 % (37.0-47.0); Hemoglobin 11.9 g/dL (12.0-16.0); Mean Corp Hgb Conc. 34.2 g/dL (33.0-37.0); Mean Corpuscular Volume 95.1 fL (81.0-99.0); Nucleated Red Blood Cells % 0 %; Platelet Count 220 10^3/uL (130-400); Red Cell Dist. Width 11.8 % (11.5-14.5)
[2025-06-25 17:44] LABS: Blood Urea Nitrogen 21 mg/dl (7-17); Calcium 9.6 mg/dl (8.4-10.2); Carbon Dioxide 29 mmol/L (22-30); Chloride 97 mmol/L (98-107); Glucose 96 mg/dl (70-99); Potassium 4.2 mmol/L (3.5-5.1); Sodium 130 mmol/L (135-145); eGFR > 60.00
== END ==
LOC: REG 16:28
PROVIDERS: ATTENDING PHYSICIAN Orthopaedic Surgery Hand Surgery; FAMILY PHYSICIAN Family Medicine
DX: Z01.818 Encounter for other preprocedural examination (principal)
CPT/HCPCS: 36415; 80048; 85025; 93005

== ENCOUNTER → 2025-09-03 14:22 | Outpatient (REF) | payer BC, SELFPAY | LOC: WDC 14:22 | PROVIDERS: ATTENDING PHYSICIAN Obstetrics & Gynecology; FAMILY PHYSICIAN Family Medicine | DX: Z12.31 Encounter for screening mammogram for malignant neoplasm of breast (principal) | CPT/HCPCS: 77063; 77067 ==

== ENCOUNTER 2025-09-14 07:14 | Outpatient (RCR) | payer BC, SELFPAY | END 2025-09-14 23:59 | disposition home or self-care (01) | LOC: ROT 07:14 | PROVIDERS: ATTENDING PHYSICIAN Orthopaedic Surgery Hand Surgery; FAMILY PHYSICIAN Family Medicine | DX: Z47.89 Encounter for other orthopedic aftercare (principal); S52.532D Colles' fracture of left radius, subsequent encounter for closed fracture with routine healing; Z73.6 Limitation of activities due to disability; W19.XXXD Unspecified fall, subsequent encounter | CPT/HCPCS: 97010; 97018; 97022; 97110; 97140; 97166; 97535 ==

== ENCOUNTER 2025-10-02 16:04 | Outpatient (RCR) | payer BC, SELFPAY | END 2025-10-02 23:59 | disposition home or self-care (01) | LOC: ROT 16:04 | PROVIDERS: ATTENDING PHYSICIAN Orthopaedic Surgery Hand Surgery; FAMILY PHYSICIAN Family Medicine | DX: Z47.89 Encounter for other orthopedic aftercare (principal); S52.532D Colles' fracture of left radius, subsequent encounter for closed fracture with routine healing; Z73.6 Limitation of activities due to disability; W19.XXXD Unspecified fall, subsequent encounter | CPT/HCPCS: 97018; 97110; 97140 ==